=== PATIENT | male | born 1955 | race Caucasian/White ===

== ENCOUNTER 2016-06-21 17:02 | Emergency (ER) | payer MEDICARE ==
[~2016-06-21] VITALS: Ht 185.4 cm; Wt 102.1 kg
[2016-06-21] MEDS ORDERED: FENTANYL PF 100 MCG/2 ML VIAL. IV ONE (18:15)
[2016-06-21] MEDS ORDERED: KETOROLAC TROMETHAMINE 30 MG/ML INJ. IV ONE (18:15)
[2016-06-21 18:45] VITALS: BP 133/88
[2016-06-21] MEDS ORDERED: HYDR-971 PO (18:46)
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
--- NOTE | 2016-06-21 21:15 | EKG ---
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
== END 2016-06-21 18:56 | disposition home or self-care (01) ==
LOC: ER 17:02
DX: M54.12 Radiculopathy, cervical region (principal); R07.89 Other chest pain; F31.9 Bipolar disorder, unspecified
CPT/HCPCS: 71010; 84484; 93005; 96374; 96375; 99284; J1885; J3010